=== PATIENT | male | born 2000 | race Caucasian/White ===

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

== ENCOUNTER 2021-03-25 19:17 | Emergency (ER) | payer BC, OTHER ==
[2021-03-25 19:48] VITALS: TEMP 98; BMI 30.8
[2021-03-25] MEDS ORDERED: DIPHTH,PERTUSS(ACELL),TET 0.5 ML DISP.SYRIN IM ONE ×2 (20:42→20:58)
[2021-03-25 22:27] VITALS: BP 139/89; PULSE 90
== END 2021-03-25 22:27 | disposition home or self-care (01) ==
LOC: JER 19:17
PROC: 3E0234Z Introduction of Serum, Toxoid and Vaccine into Muscle, Percutaneous Approach (ICD-10-PCS; principal; 2021-03-25)
DX: S00.81XA Abrasion of other part of head, initial encounter (principal)
CPT/HCPCS: 90715; 99284-25

== ENCOUNTER 2024-01-06 14:45 | Observation (INO) | payer BC, OTHER ==
[2024-01-06] MEDS ORDERED: ACETAMINOPHEN INJECTION 100 ML IVPB ONE (17:31)
[2024-01-06 17:42] LABS: VENOUS BASE EXCESS -3.9 mmol/L (-2-2); VENOUS O2 SATURATION 75.9 % (70-80); VENOUS PCO2 41.7 mmHg (38-52); VENOUS PH 7.335 (7.310-7.410)
[2024-01-06 17:46] LABS: BASO % 0.5 % (0-2.0); EOS % 0.3 % (0-4.5); HEMATOCRIT 46.3 % (35.4-49); HEMOGLOBIN 15.6 GM/dL (11.7-16.9); MCH 32.8 pg (25.7-33.7); MCHC 33.7 g/dl (32.0-35.9); MEAN CELL VOLUME 97.4 fl (80-96); MEAN PLT VOLUME 8.8 fl (7.5-11.1); MONO % 11.5 % (3.8-10.2); NEUT % 72.7 % (42.8-82.8); PLATELET COUNT 247 10^3/uL (134-434); RBC 4.75 M/mm3 (4.00-5.60); RDW 14.4 % (11.9-15.9); WHITE BLOOD COUNT 8.3 K/mm3 (4.0-10.0)
[2024-01-06] MEDS: ACETAMINOPHEN 1000 MG/100 ML BAG IVPB ONE (17:47)
[2024-01-06] MEDS: LACTATED RINGERS SOLUTION 1000 ML INFUS.BAG IV ONE (17:48)
[2024-01-06 17:53] LABS: INR 0.97 (0.83-1.09); PROTHROMBIN TIME (PATIENT) 11.3 SEC (9.7-13.0)
[2024-01-06 17:55] LABS: ACTIVATED PTT 36.1 SECONDS (25.2-36.5)
[2024-01-06 18:02] LABS: POTASSIUM 4.5 mmol/L (3.5-5.1)
[2024-01-06 18:04] LABS: ALBUMIN 3.6 g/dl (3.4-5.0); BLOOD UREA NITROGEN 11.4 mg/dL (7-18); CALCIUM 8.6 mg/dL (8.5-10.1); MAGNESIUM 2.5 mg/dL (1.8-2.4)
[2024-01-06 18:07] LABS: CREATININE 0.8 mg/dL (0.55-1.3)
[2024-01-06 18:09] LABS: BILIRUBIN,TOTAL 0.2 mg/dL (0.2-1); TOT PROT 7.5 g/dl (6.4-8.2)
[2024-01-06] MEDS ORDERED: PIPERACILLIN/TAZOB 4.5 GM 4.5 GM/100 ML BAG IVPB ONE (19:34)
[2024-01-06] MEDS: PIPERACILLIN/TAZOB 4.5 GM 4.5 GM in DEXTROSE 5%-WATER 100 ML IVPB ONE (19:44)
[2024-01-06] MEDS ORDERED: LIDOCAINE HCL 2% JELLY 6 ML TP ONE (19:52)
[2024-01-06] MEDS ORDERED: VANCOMYCIN/WATER 1250 MG 1,250 MG/250 ML BAG IVPB ONE (20:47)
[2024-01-06] MEDS: VANCOMYCIN/WATER 1250 MG 1,250 MG/250 ML BAG IVPB ONE (20:49)
[2024-01-06] MEDS: LIDOCAINE HCL 2% JELLY 10 ML CARTRIDGE UR ONE (21:05)
[2024-01-06 21:08] LABS: PH,URINE 6.5 (5.0-8.0); URINE APPEARANCE CLEAR; URINE BILIRUBIN NEGATIVE (NEGATIVE); URINE COLOR YELLOW; URINE GLUCOSE (UA) NEGATIVE (NEGATIVE); URINE KETONE TRACE (NEGATIVE); URINE LEUK ESTERASE NEGATIVE (NEGATIVE); URINE NITRITE NEGATIVE (NEGATIVE); URINE PROTEIN NEGATIVE (NEGATIVE); URINE UROBILINOGEN 0.2 mg/dL (0.2-1.0)
[2024-01-07] MEDS ORDERED: [UNRECOGNIZED DRUG - OTHER] NS PRN (02:48)
[2024-01-07] MEDS ORDERED: DIAZEPAM NS PRN (02:48)
[2024-01-07] MEDS: levETIRAcetam 500 MG/5 ML INJECTION VIAL IVPB ONE (03:26)
[2024-01-07] MEDS: LORazepam 2 MG/ML SDV VIAL IVPUSH ONE (06:18)
[2024-01-07] MEDS: LORazepam 2 MG/ML SDV VIAL IM ONE (06:19)
[2024-01-07] MEDS: LACTATED RINGERS SOLUTION 1,000 ML/1,000 ML INFUS.BAG IV STA (07:30)
[2024-01-07] MEDS ORDERED: diazePAM CARPU-JECT 10 MG/2 ML DISP.SYRIN IVPUSH PRN ×2 (07:55→10:24)
[2024-01-07 12:54] VITALS: BMI 35.3
[2024-01-07] MEDS: PHENobarbital 30 MG TABLET PO SCH (13:17)
[2024-01-07] MEDS: QUEtiapine FUMARATE 100 MG TABLET (FP) PO SCH (13:54)
[2024-01-07] MEDS: ZONISAMIDE 100 MG CAPSULE PO SCH (13:54)
[2024-01-07] MEDS: ENOXAPARIN NA (PORCINE) 40 MG/0.4 ML DISP.SYRIN SQ SCH (13:55)
[2024-01-07] MEDS: CENOBAMATE 100 MG PO SCH (13:55)
[2024-01-07] MEDS: CENOBAMATE 50 MG PO SCH (13:55)
[2024-01-07] MEDS: [UNRECOGNIZED DRUG - OTHER] PO SCH (13:55)
[2024-01-07] MEDS: [UNRECOGNIZED DRUG - OTHER] PO SCH (13:55)
[2024-01-07] MEDS: ESLICARBAZEPINE ACETATE 600 MG PO SCH ×2 (15:30)
[2024-01-07] MEDS: [UNRECOGNIZED DRUG - OTHER] PO SCH (15:30)
[2024-01-07] MEDS: [UNRECOGNIZED DRUG - OTHER] PO SCH (15:30)
[2024-01-07] MEDS ORDERED: ACETAMINOPHEN 325 MG TABLET (FP) PO PRN (16:33)
[2024-01-07 18:29] LABS: BASO % 0.6 % (0-2.0); HEMATOCRIT 43.8 % (35.4-49); HEMOGLOBIN 14.4 GM/dL (11.7-16.9); LYMPH % 34.6 % (8-40); MCH 31.9 pg (25.7-33.7); MCHC 32.8 g/dl (32.0-35.9); MEAN CELL VOLUME 97.3 fl (80-96); MEAN PLT VOLUME 8.4 fl (7.5-11.1); MONO % 21.2 % (3.8-10.2); NEUT % 42.6 % (42.8-82.8); PLATELET COUNT 222 10^3/uL (134-434); RDW 13.9 % (11.9-15.9); WHITE BLOOD COUNT 5.7 K/mm3 (4.0-10.0)
[2024-01-07 19:11] LABS: POTASSIUM 3.8 mmol/L (3.5-5.1)
[2024-01-07 19:13] LABS: ALBUMIN 3.4 g/dl (3.4-5.0); BLOOD UREA NITROGEN 12.5 mg/dL (7-18); CALCIUM 8.8 mg/dL (8.5-10.1); MAGNESIUM 2.4 mg/dL (1.8-2.4)
[2024-01-07 19:15] LABS: CREATININE 0.9 mg/dL (0.55-1.3); PHOSPHOROUS 4.4 mg/dL (2.5-4.9)
[2024-01-07 19:18] LABS: BILIRUBIN,TOTAL 0.2 mg/dL (0.2-1); TOT PROT 6.9 g/dl (6.4-8.2)
[2024-01-07 19:56] VITALS: RESP 20
[2024-01-07] MEDS: QUEtiapine FUMARATE 200 MG TABLET PO SCH (22:20)
[2024-01-07] MEDS: levETIRAcetam 500 MG/5 ML INJECTION VIAL IVPB SCH (23:01)
[2024-01-07] MEDS: levETIRAcetam 500 MG TABLET (FP) PO SCH (23:03)
[2024-01-08 00:18] VITALS: BP 126/104; PULSE 109; TEMP 97.3
[2024-01-08 11:21] LABS: HEMATOCRIT 44.4 % (35.4-49); HEMOGLOBIN 14.6 GM/dL (11.7-16.9); MCH 32.1 pg (25.7-33.7); MEAN CELL VOLUME 97.3 fl (80-96); MEAN PLT VOLUME 8.8 fl (7.5-11.1); PLATELET COUNT 215 10^3/uL (134-434); RBC 4.57 M/mm3 (4.00-5.60); RDW 14.2 % (11.9-15.9); WHITE BLOOD COUNT 5.1 K/mm3 (4.0-10.0)
[2024-01-08 11:28] LABS: POTASSIUM 3.9 mmol/L (3.5-5.1)
[2024-01-08 11:30] LABS: ALBUMIN 3.3 g/dl (3.4-5.0); BLOOD UREA NITROGEN 13.5 mg/dL (7-18); CALCIUM 8.6 mg/dL (8.5-10.1); MAGNESIUM 2.4 mg/dL (1.8-2.4)
[2024-01-08 11:33] LABS: CREATININE 0.9 mg/dL (0.55-1.3)
[2024-01-08 11:35] LABS: BILIRUBIN,TOTAL 0.2 mg/dL (0.2-1); TOT PROT 6.9 g/dl (6.4-8.2)
== END 2024-01-08 14:37 ==
LOC: JER 14:45 → JERBED 21:18 → J4W 01-07 08:50
PROVIDERS: ADMIT Internal Medicine; ATTEND Nurse Practitioner Acute Care
PROC: 3E033NZ Introduction of Analgesics, Hypnotics, Sedatives into Peripheral Vein, Percutaneous Approach (ICD-10-PCS; principal; 2024-01-06)
PROC: 3E033GC Introduction of Other Therapeutic Substance into Peripheral Vein, Percutaneous Approach (ICD-10-PCS; 2024-01-06)
PROC: 3E023GC Introduction of Other Therapeutic Substance into Muscle, Percutaneous Approach (ICD-10-PCS; 2024-01-06)
PROC: 3E0337Z Introduction of Electrolytic and Water Balance Substance into Peripheral Vein, Percutaneous Approach (ICD-10-PCS; 2024-01-06)
PROC: 3E03329 Introduction of Other Anti-infective into Peripheral Vein, Percutaneous Approach (ICD-10-PCS; 2024-01-06)
DX: G40.909 Epilepsy, unspecified, not intractable, without status epilepticus (principal); R50.9 Fever, unspecified; F84.0 Autistic disorder; G52.2 Disorders of vagus nerve; S09.90XA Unspecified injury of head, initial encounter; Z96.82 Presence of neurostimulator; X58.XXXA Exposure to other specified factors, initial encounter; Y93.89 Activity, other specified; Y92.099 Unspecified place in other non-institutional residence as the place of occurrence of the external cause
CPT/HCPCS: 0241U-QW; 36415; 70450-TC; 71045-TC-FY; 71250-TC; 72125-TC; 74176-TC; 80053; 80184; 80203; 81003; 82550; 82803; 83605; 83735; 84100; 84484; 85025; 85027; 85610; 85730; 86850; 86900; 86901; 87040; 87086; 93005; 93010; 99285-25; G0378; G6031; J0131